=== PATIENT | male | born 1950 | race Two or more races ===

== ENCOUNTER 2017-06-30 14:05 | Inpatient (IN) | payer OTHER ==
[~2017-06-30] VITALS: Ht 149.9 cm; Wt 56.3 kg
[2017-06-30] MEDS ORDERED: ACET500C8 PO (14:35)
[2017-06-30] MEDS ORDERED: ASCO500C16 PO (14:35)
[2017-06-30] MEDS ORDERED: DOCU-141 PO (14:35)
[2017-06-30] MEDS ORDERED: ZINC220C8 PO (14:35)
[2017-06-30] MEDS ORDERED: FERR300L PO (14:35)
[2017-06-30] MEDS ORDERED: LATA2.5D2 EACHEYE (14:35)
[2017-06-30] MEDS ORDERED: PANT40TA2 PO (14:35)
[2017-06-30] MEDS ORDERED: SIMV20TA2 PO (14:35)
[2017-06-30] MEDS ORDERED: FURO-152 PO (14:35)
[2017-06-30] MEDS ORDERED: AMLO5TAB4 PO (14:35)
[2017-06-30] MEDS ORDERED: FLUT16SP2 NS (14:35)
[2017-06-30] MEDS ORDERED: FOLI0.8T2 PO (14:35)
[2017-06-30] MEDS ORDERED: GLIM2TAB2 PO (14:35)
[2017-06-30] MEDS ORDERED: ASPI-1101 PO (14:35)
[2017-06-30] MEDS ORDERED: LOSA50TA21 PO (14:35)
[2017-06-30] MEDS ORDERED: INSU300I SQ (14:35)
[2017-06-30] MEDS ORDERED: COLL30OI TOP (14:35)
[2017-06-30] MEDS ORDERED: DIVA250T6 PO (14:35)
[2017-06-30] MEDS ORDERED: IV NORMAL SALINE 1000 ML BAG IV ONE (15:15)
[2017-06-30 15:28] LABS: BASOPHILS # (AUTO) 0.1 K/uL (0.0-8.0); BASOPHILS % (AUTO) 0.6 % (0.0-2.0); EOSINOPHILS % (AUTO) 0.3 % (0.0-7.0); HEMATOCRIT 26.4 % (36.7-47.1); HEMOGLOBIN 8.7 g/dL (12.5-16.3); LYMPHOCYTES # (AUTO) 1.6 K/uL (20.0-40.0); LYMPHOCYTES % (AUTO) 8.9 % (20.5-51.5); MEAN CORPUSCULAR HEMOGLOBIN 29.8 uug (23.8-33.4); MEAN CORPUSCULAR HGB CONC 33 g/dL (32.5-36.3); MEAN CORPUSCULAR VOLUME 90.4 fL (73.0-96.2); MONOCYTES # (AUTO) 1.1 K/uL (2.0-10.0); MONOCYTES % (AUTO) 6.3 % (0.0-11.0); NEUTROPHILS # (AUTO) 15.2 K/uL (1.8-8.9); NEUTROPHILS % (AUTO) 83.9 % (38.5-71.5); PLATELET COUNT (AUTO) 566 K/uL (152-348); RED BLOOD CELL COUNT(AUTO) 2.92 MIL/uL (4.06-5.63); WHITE BLOOD COUNT (AUTO) 18.1 K/uL (3.6-10.2)
[2017-06-30 15:36] LABS: CREATININE 3.4 mg/dL (0.6-1.3)
[2017-06-30 15:41] LABS: BILIRUBIN,DIRECT 0.1 mg/dL (0.0-0.2); BILIRUBIN,TOTAL 0.3 mg/dL (0.2-1.0); TOTAL PROTEIN, SERUM 8.6 g/dL (6.4-8.2)
[2017-06-30] MEDS ORDERED: VANCOMYCIN IV 1,000 MG in IV DEXTROSE 5% 250 ML IV ONE (15:45)
[2017-06-30] MEDS ORDERED: PIPERACILLIN SODIUM/TAZOBACTAM 4.5 G in IV DEXTROSE 5% 50 ML IV SCH ×2 (15:45→16:06)
[2017-06-30] MEDS ORDERED: VANCOMYCIN IV 200 ML ONE (15:55)
[2017-06-30] MEDS ORDERED: PIPERACILLIN/TAZO 4.5 GM VIAL IV ONE (15:55)
[2017-06-30] MEDS ORDERED: PIPERACILLIN SODIUM/TAZOBACTAM 4.5 G in IV DEXTROSE 5% 50 ML IV ONE (16:07)
[2017-06-30 17:43] LABS: *CLARITY,URINE TURBID (CLEAR); *COLOR,URINE YELLOW (YELLOW)
[2017-06-30 17:44] LABS: *BILIRUBIN,URIN NEGATIVE (NEGATIVE); *BLOOD, URINE 2+ (NEGATIVE); *KETONES,URINE TRACE (NEGATIVE); *PROTEIN,URINE 3+ (NEGATIVE); *UROBILINOGEN,URINE 0.2 E.U./dl (NORMAL); LEUKOCYTE ESTERASE ,URINE 3+ (NEGATIVE); NITRITE, URINE NEGATIVE (NEGATIVE); UGLUCOSE TRACE (NEGATIVE)
[2017-06-30 17:46] LABS: BACTERIA,URINE MODERATE /HPF (NONE SEEN); MUCUS,URINE MANY /LPF (0-FEW); WBC,URINE TNTC /HPF (0-3)
[2017-06-30 17:48] VITALS: BP 131/46
[2017-06-30] MEDS ORDERED: DEXTROSE 50% 50 ML DISP.SYRIN IV PRN (19:30)
[2017-06-30] MEDS ORDERED: MORPHINE SULFATE 2 MG/1 ML DISP.SYRIN IV PRN (19:30)
[2017-06-30] MEDS ORDERED: ACETAMINOPHEN 650 MG SUPP.RECT RC PRN (19:30)
[2017-06-30] MEDS ORDERED: ONDANSETRON 4 MG/2 ML VIAL IV PRN (19:30)
[2017-06-30] MEDS: BLOOD SUGAR DIAGNOSTIC 1 EACH STRIP VI SCH (20:12)
[2017-06-30] MEDS: INSULIN REGULAR, HUMAN 300 UNIT/3 ML VIAL SQ PRN (20:15)
[2017-06-30] MEDS: FAMOTIDINE. 20 MG/2 ML VIAL IV SCH (20:16)
[2017-06-30] MEDS: IV D5 1/2 NS 1000 ML 1,000 ML IV PRN (20:18)
[2017-06-30] MEDS: LATANOPROST OPHT DROP 2.5 ML BOTTLE EACHEYE SCH (20:32)
[2017-06-30 21:10] VITALS: BP 123/54
[2017-07-01] MEDS: PIPERACILLIN/TAZOBACTAM/D5W 2.25 G in PREMIXED 1 EACH IV SCH ×4 (00:06→23:26)
[2017-07-01] MEDS: BLOOD SUGAR DIAGNOSTIC 1 EACH STRIP VI SCH ×6 (00:06→23:23)
[2017-07-01] MEDS: INSULIN REGULAR, HUMAN 300 UNIT/3 ML VIAL SQ PRN ×4 (00:08→23:26)
[2017-07-01 05:43] VITALS: BP 133/77
[2017-07-01 06:20] LABS: BASOPHILS # (AUTO) 0.1 K/uL (0.0-8.0); BASOPHILS % (AUTO) 0.5 % (0.0-2.0); EOSINOPHILS # (AUTO) 0.2 K/uL (0.0-0.7); EOSINOPHILS % (AUTO) 0.9 % (0.0-7.0); HEMATOCRIT 25.2 % (36.7-47.1); HEMOGLOBIN 8.2 g/dL (12.5-16.3); LYMPHOCYTES # (AUTO) 0.7 K/uL (20.0-40.0); LYMPHOCYTES % (AUTO) 3.8 % (20.5-51.5); MEAN CORPUSCULAR HEMOGLOBIN 29.6 uug (23.8-33.4); MEAN CORPUSCULAR HGB CONC 32 g/dL (32.5-36.3); MEAN CORPUSCULAR VOLUME 91.3 fL (73.0-96.2); MONOCYTES # (AUTO) 0.8 K/uL (2.0-10.0); MONOCYTES % (AUTO) 4.7 % (0.0-11.0); NEUTROPHILS # (AUTO) 15.7 K/uL (1.8-8.9); NEUTROPHILS % (AUTO) 90.1 % (38.5-71.5); PLATELET COUNT (AUTO) 531 K/uL (152-348); RED BLOOD CELL COUNT(AUTO) 2.75 MIL/uL (4.06-5.63); WHITE BLOOD COUNT (AUTO) 17.4 K/uL (3.6-10.2)
[2017-07-01 06:47] LABS: BILIRUBIN,TOTAL 0.5 mg/dL (0.2-1.0); CREATININE 3.4 mg/dL (0.6-1.3); MAGNESIUM 2.2 mg/dL (1.8-2.4); PHOSPHOROUS 3.8 mg/dL (2.5-4.9); POTASSIUM 4.6 mmol/L (3.5-5.1); TOTAL PROTEIN, SERUM 7.6 g/dL (6.4-8.2)
[2017-07-01 06:49] LABS: THYROID STIMULATING HORMONE 2.51 mIU/mL (0.358-3.740)
[2017-07-01] MEDS: FAMOTIDINE. 20 MG/2 ML VIAL IV SCH ×2 (08:19→20:15)
[2017-07-01 09:33] VITALS: BP 137/43
[2017-07-01] MEDS ORDERED: POLYMYXIN B SULFATE 500,000 UNITS, BACITRACIN 50,000 UNITS, NORMAL SALINE 20 ML MC ONE ×3 (09:45)
[2017-07-01] MEDS ORDERED: MORPHINE SULFATE 4 MG/1 ML DISP.SYRIN IV PRN (10:00)
[2017-07-01] MEDS ORDERED: MORPHINE SULFATE 2 MG/1 ML DISP.SYRIN IV PRN (10:00)
[2017-07-01] MEDS ORDERED: IV NORMAL SALINE 1000 ML BAG IV ONE (12:21)
[2017-07-01] MEDS ORDERED: LIDOCAINE HCL 1% 20 ML VIAL MC ONE (12:21)
[2017-07-01] MEDS ORDERED: SEVOFLURANE 250 ML BOTTLE IH ONE (12:21)
[2017-07-01] MEDS ORDERED: EPHEDRINE SULFATE 50 MG/ML AMPUL MC ONE (12:21)
[2017-07-01 12:30] VITALS: BP 105/43
[2017-07-01] MEDS: IV D5 1/2 NS 1000 ML 1,000 ML IV PRN (12:45)
[2017-07-01 14:47] VITALS: BP 106/47
[2017-07-01 15:31] VITALS: BP 125/40
[2017-07-01] MEDS ORDERED: VANCOMYCIN IV 1 G in PREMIXED 0 EACH IV ONE (16:30)
[2017-07-01 19:47] LABS: *BILIRUBIN,URIN NEGATIVE (NEGATIVE); *BLOOD, URINE 1+ (NEGATIVE); *CLARITY,URINE CLEAR (CLEAR); *COLOR,URINE YELLOW (YELLOW); *KETONES,URINE NEGATIVE (NEGATIVE); *PROTEIN,URINE 2+ (NEGATIVE); *UROBILINOGEN,URINE 0.2 E.U./dl (NORMAL); LEUKOCYTE ESTERASE ,URINE 1+ (NEGATIVE); NITRITE, URINE NEGATIVE (NEGATIVE); PH,URINE 5.5 (5.0-8.0); UGLUCOSE TRACE (NEGATIVE)
[2017-07-01 19:53] LABS: RBC,URINE 0-3 /HPF (0-3); WBC,URINE 80-100 /HPF (0-3)
[2017-07-01 19:54] LABS: BACTERIA,URINE NONE SEEN /HPF (NONE SEEN); SQUAMOUS EPITHELIAL CELL,UR FEW /HPF (NONE SEEN)
[2017-07-01] MEDS: LATANOPROST OPHT DROP 2.5 ML BOTTLE EACHEYE SCH (20:15)
[2017-07-01 20:17] LABS: *CREATININE,URINE 43.9 mg/dL (30-125); *URINE TOTAL PROTEIN RANDOM 113.9 mg/dL (<150/24HR)
[2017-07-01 20:53] VITALS: BP 125/62
[2017-07-01] MEDS ORDERED: INSULIN GLARGINE,HUM 300 UNITS/3 ML CARTRIDGE SQ SCH (23:15)
[2017-07-01] MEDS ORDERED: INSULIN GLARGINE,HUM 300 UNITS/3 ML CARTRIDGE SQ ONE (23:51)
[2017-07-02] VITALS (9 sets, daily range): BP systolic 117–151; BP diastolic 37–78
[2017-07-02] MEDS: BLOOD SUGAR DIAGNOSTIC 1 EACH STRIP VI SCH ×4 (05:30→20:24)
[2017-07-02] MEDS: INSULIN REGULAR, HUMAN 300 UNIT/3 ML VIAL SQ PRN ×3 (05:33→16:28)
[2017-07-02 07:00] LABS: BILIRUBIN,TOTAL 0.4 mg/dL (0.2-1.0); CREATININE 3.3 mg/dL (0.6-1.3); MAGNESIUM 2.1 mg/dL (1.8-2.4); PHOSPHOROUS 3.5 mg/dL (2.5-4.9); POTASSIUM 4.5 mmol/L (3.5-5.1); TOTAL PROTEIN, SERUM 7.5 g/dL (6.4-8.2)
[2017-07-02 07:08] LABS: BASOPHILS # (AUTO) 0.1 K/uL (0.0-8.0); BASOPHILS % (AUTO) 0.5 % (0.0-2.0); EOSINOPHILS # (AUTO) 0.7 K/uL (0.0-0.7); EOSINOPHILS % (AUTO) 4.7 % (0.0-7.0); HEMATOCRIT 22.7 % (36.7-47.1); HEMOGLOBIN 7.5 g/dL (12.5-16.3); LYMPHOCYTES # (AUTO) 0.9 K/uL (20.0-40.0); LYMPHOCYTES % (AUTO) 6.5 % (20.5-51.5); MEAN CORPUSCULAR HGB CONC 33 g/dL (32.5-36.3); MEAN CORPUSCULAR VOLUME 91.6 fL (73.0-96.2); MONOCYTES # (AUTO) 0.8 K/uL (2.0-10.0); MONOCYTES % (AUTO) 5.5 % (0.0-11.0); NEUTROPHILS # (AUTO) 11.7 K/uL (1.8-8.9); NEUTROPHILS % (AUTO) 82.8 % (38.5-71.5); PLATELET COUNT (AUTO) 509 K/uL (152-348); WHITE BLOOD COUNT (AUTO) 14.1 K/uL (3.6-10.2)
[2017-07-02 07:09] LABS: RED BLOOD CELL COUNT(AUTO) 2.48 MIL/uL (4.06-5.63)
[2017-07-02] MEDS: IV D5 1/2 NS 1000 ML 1,000 ML IV PRN (08:49)
[2017-07-02] MEDS: PIPERACILLIN/TAZOBACTAM/D5W 2.25 G in PREMIXED 1 EACH IV SCH ×2 (08:49→16:12)
[2017-07-02] MEDS ORDERED: EPOETIN ALFA 10,000 UNITS/ML VIAL SQ ONE (09:45)
[2017-07-02] MEDS ORDERED: FAMOTIDINE 20 MG TABLET PO SCH ×2 (10:00→10:31)
[2017-07-02] MEDS: FAMOTIDINE 20 MG TABLET PO SCH (11:33)
[2017-07-02] MEDS: LATANOPROST OPHT DROP 2.5 ML BOTTLE EACHEYE SCH (20:21)
[2017-07-02] MEDS ORDERED: INSULIN GLARGINE,HUM 300 UNITS/3 ML CARTRIDGE SQ SCH (21:00)
[2017-07-02] MEDS ORDERED: INSULIN REGULAR, HUMAN 300 UNIT/3 ML VIAL SQ SCH ×3 (21:15→21:45)
[2017-07-02] MEDS ORDERED: INSULIN REGULAR, HUMAN 300 UNITS/3 ML VIAL SQ PRN (21:45)
[2017-07-02] MEDS ORDERED: INSULIN REGULAR, HUMAN 300 UNIT/3 ML VIAL ONE (21:45)
[2017-07-03] VITALS (8 sets, daily range): BP systolic 140–183; BP diastolic 43–77
[2017-07-03] MEDS: PIPERACILLIN/TAZOBACTAM/D5W 2.25 G in PREMIXED 1 EACH IV SCH ×3 (01:06→16:26)
[2017-07-03 06:45] LABS: CREATININE 2.5 mg/dL (0.6-1.3); MAGNESIUM 2.1 mg/dL (1.8-2.4); PHOSPHOROUS 3.1 mg/dL (2.5-4.9); POTASSIUM 4.8 mmol/L (3.5-5.1)
[2017-07-03] MEDS ORDERED: INSULIN REGULAR, HUMAN 300 UNIT/3 ML VIAL SQ PRN (07:15)
[2017-07-03] MEDS ORDERED: DEXTROSE 50% 50 ML DISP.SYRIN IV PRN (07:15)
[2017-07-03] MEDS ORDERED: BLOOD SUGAR DIAGNOSTIC 1 EACH STRIP VI SCH ×2 (07:30→21:00)
[2017-07-03 07:43] LABS: BASOPHILS # (AUTO) 0.1 K/uL (0.0-8.0); BASOPHILS % (AUTO) 0.7 % (0.0-2.0); EOSINOPHILS # (AUTO) 0.9 K/uL (0.0-0.7); LYMPHOCYTES # (AUTO) 1.6 K/uL (20.0-40.0); LYMPHOCYTES % (AUTO) 11.9 % (20.5-51.5); MEAN CORPUSCULAR HEMOGLOBIN 30.2 uug (23.8-33.4); MEAN CORPUSCULAR HGB CONC 34 g/dL (32.5-36.3); MEAN CORPUSCULAR VOLUME 89.6 fL (73.0-96.2); MONOCYTES # (AUTO) 0.7 K/uL (2.0-10.0); MONOCYTES % (AUTO) 5.4 % (0.0-11.0); NEUTROPHILS # (AUTO) 9.9 K/uL (1.8-8.9); PLATELET COUNT (AUTO) 602 K/uL (152-348); RED BLOOD CELL COUNT(AUTO) 3.47 MIL/uL (4.06-5.63); WHITE BLOOD COUNT (AUTO) 13.2 K/uL (3.6-10.2)
[2017-07-03 07:47] LABS: HEMOGLOBIN 10.5 g/dL (12.5-16.3)
[2017-07-03 07:48] LABS: HEMATOCRIT 31.1 % (36.7-47.1)
[2017-07-03] MEDS: BLOOD SUGAR DIAGNOSTIC 1 EACH STRIP VI SCH ×5 (08:00→21:51)
[2017-07-03] MEDS: FAMOTIDINE 20 MG TABLET PO SCH (08:11)
[2017-07-03 09:52] LABS: *BILIRUBIN,URIN NEGATIVE (NEGATIVE); *BLOOD, URINE 1+ (NEGATIVE); *CLARITY,URINE CLEAR (CLEAR); *COLOR,URINE YELLOW (YELLOW); *KETONES,URINE NEGATIVE (NEGATIVE); *PROTEIN,URINE 2+ (NEGATIVE); *UROBILINOGEN,URINE 0.2 E.U./dl (NORMAL); LEUKOCYTE ESTERASE ,URINE 1+ (NEGATIVE); NITRITE, URINE NEGATIVE (NEGATIVE); UGLUCOSE NEGATIVE (NEGATIVE)
[2017-07-03 10:06] LABS: *CREATININE,URINE 22.7 mg/dL (30-125)
[2017-07-03 10:15] LABS: BACTERIA,URINE NONE SEEN /HPF (NONE SEEN)
[2017-07-03 10:16] LABS: SQUAMOUS EPITHELIAL CELL,UR FEW /HPF (NONE SEEN); WBC,URINE 20-50 /HPF (0-3); YEAST,URINE MODERATE /HPF (NONE SEEN)
[2017-07-03] MEDS ORDERED: METOPROLOL TARTRATE 25 MG TABLET PO SCH (12:15)
[2017-07-03] MEDS ORDERED: METOPROLOL TARTRATE 50 MG TABLET PO ONE (17:57)
[2017-07-03] MEDS: LACTOBACILLUS RHAMNOSUS GG 1 EACH CAPSULE PO SCH (20:13)
[2017-07-03] MEDS: LATANOPROST OPHT DROP 2.5 ML BOTTLE EACHEYE SCH (20:13)
[2017-07-03] MEDS: hydrALAZINE HCL 25 MG TABLET PO PRN (20:14)
[2017-07-03] MEDS: INSULIN GLARGINE,HUM 300 UNITS/3 ML CARTRIDGE SQ SCH (21:49)
[2017-07-03] MEDS: INSULIN REGULAR, HUMAN 300 UNITS/3 ML VIAL SQ PRN (21:50)
[2017-07-04] MEDS: PIPERACILLIN/TAZOBACTAM/D5W 2.25 G in PREMIXED 1 EACH IV SCH ×4 (00:20→23:14)
[2017-07-04 04:31] VITALS: BP 143/53
[2017-07-04 06:58] LABS: BASOPHILS # (AUTO) 0.1 K/uL (0.0-8.0); BASOPHILS % (AUTO) 0.9 % (0.0-2.0); EOSINOPHILS # (AUTO) 0.8 K/uL (0.0-0.7); EOSINOPHILS % (AUTO) 7.4 % (0.0-7.0); HEMATOCRIT 30.7 % (36.7-47.1); HEMOGLOBIN 10.3 g/dL (12.5-16.3); LYMPHOCYTES # (AUTO) 1.2 K/uL (20.0-40.0); LYMPHOCYTES % (AUTO) 11.5 % (20.5-51.5); MEAN CORPUSCULAR HEMOGLOBIN 29.8 uug (23.8-33.4); MEAN CORPUSCULAR HGB CONC 33 g/dL (32.5-36.3); MEAN CORPUSCULAR VOLUME 89.3 fL (73.0-96.2); MONOCYTES # (AUTO) 0.6 K/uL (2.0-10.0); MONOCYTES % (AUTO) 5.3 % (0.0-11.0); NEUTROPHILS # (AUTO) 7.9 K/uL (1.8-8.9); NEUTROPHILS % (AUTO) 74.9 % (38.5-71.5); PLATELET COUNT (AUTO) 629 K/uL (152-348); RED BLOOD CELL COUNT(AUTO) 3.44 MIL/uL (4.06-5.63); WHITE BLOOD COUNT (AUTO) 10.6 K/uL (3.6-10.2)
[2017-07-04 07:35] LABS: BILIRUBIN,TOTAL 0.3 mg/dL (0.2-1.0); CREATININE 2.4 mg/dL (0.6-1.3); MAGNESIUM 2.2 mg/dL (1.8-2.4); PHOSPHOROUS 3.2 mg/dL (2.5-4.9); POTASSIUM 4.8 mmol/L (3.5-5.1); VANCOMYCIN,RANDOM 15.7 ug/mL (18.0-26.0)
[2017-07-04] MEDS: BLOOD SUGAR DIAGNOSTIC 1 EACH STRIP VI SCH ×4 (07:49→20:38)
[2017-07-04] MEDS: LACTOBACILLUS RHAMNOSUS GG 1 EACH CAPSULE PO SCH ×2 (09:06→20:25)
[2017-07-04] MEDS: FAMOTIDINE 20 MG TABLET PO SCH (09:06)
[2017-07-04] MEDS: METOPROLOL TARTRATE 50 MG TABLET PO SCH ×2 (09:07→20:25)
[2017-07-04 09:10] VITALS: BP 144/51
[2017-07-04] MEDS ORDERED: VANCOMYCIN IV 1 G in PREMIXED 0 EACH IV ONE (10:00)
[2017-07-04 11:01] VITALS: BP 146/45
[2017-07-04] MEDS: PROTEIN SUPPLEMENT (PROSTAT) 30 ML LIQUID PO SCH (12:45)
[2017-07-04 14:19] LABS: A/G RATIO 0.4 (0.7-1.7); ALBUMIN 2.3 g/dL (2.9-4.4); ALPHA-1-GLOBULIN 0.4 g/dL (0.0-0.4); ALPHA-2-GLOBULIN 1.3 g/dL (0.4-1.0); GAMMA GLOBULIN 2.4 g/dL (0.4-1.8); GLOBULIN, TOTAL 5.2 g/dL (2.2-3.9); M-SPIKE Not Observed g/dL (Not Observed)
[2017-07-04 15:08] VITALS: BP 150/69
[2017-07-04] MEDS ORDERED: PROT30LI PO (16:39)
[2017-07-04] MEDS ORDERED: DEXT50DI8 IV (16:39)
[2017-07-04] MEDS ORDERED: Insulin Glargine,Hum SQ (16:39)
[2017-07-04] MEDS ORDERED: INSU100V28 SQ ×2 (16:39)
[2017-07-04] MEDS ORDERED: TRAM50TA2 PO (16:39)
[2017-07-04] MEDS ORDERED: METO50TA16 PO (16:39)
[2017-07-04] MEDS ORDERED: Blood Sugar Diagnostic VI (16:39)
[2017-07-04] MEDS ORDERED: LACT1CAP57 PO (16:39)
[2017-07-04] MEDS ORDERED: SULF1TAB48 PO (16:43)
[2017-07-04] MEDS: hydrALAZINE HCL 25 MG TABLET PO PRN (19:24)
[2017-07-04 19:36] VITALS: BP 164/60
[2017-07-04] MEDS: LATANOPROST OPHT DROP 2.5 ML BOTTLE EACHEYE SCH (20:38)
[2017-07-04] MEDS: INSULIN REGULAR, HUMAN 300 UNITS/3 ML VIAL SQ PRN (20:40)
[2017-07-04] MEDS: INSULIN GLARGINE,HUM 300 UNITS/3 ML CARTRIDGE SQ SCH (20:41)
[2017-07-05 04:00] VITALS: BP 147/52
[2017-07-05] MEDS: hydrALAZINE HCL 25 MG TABLET PO SCH ×2 (05:36→13:48)
[2017-07-05] MEDS: BLOOD SUGAR DIAGNOSTIC 1 EACH STRIP VI SCH ×2 (06:40→10:45)
[2017-07-05 07:39] LABS: BASOPHILS # (AUTO) 0.1 K/uL (0.0-8.0); BASOPHILS % (AUTO) 1.2 % (0.0-2.0); EOSINOPHILS # (AUTO) 0.7 K/uL (0.0-0.7); EOSINOPHILS % (AUTO) 7.2 % (0.0-7.0); HEMATOCRIT 29.9 % (36.7-47.1); LYMPHOCYTES # (AUTO) 1.4 K/uL (20.0-40.0); LYMPHOCYTES % (AUTO) 14.2 % (20.5-51.5); MEAN CORPUSCULAR HEMOGLOBIN 30.2 uug (23.8-33.4); MEAN CORPUSCULAR HGB CONC 33 g/dL (32.5-36.3); MEAN CORPUSCULAR VOLUME 90.8 fL (73.0-96.2); MONOCYTES # (AUTO) 0.7 K/uL (2.0-10.0); MONOCYTES % (AUTO) 7.1 % (0.0-11.0); NEUTROPHILS # (AUTO) 6.8 K/uL (1.8-8.9); NEUTROPHILS % (AUTO) 70.3 % (38.5-71.5); PLATELET COUNT (AUTO) 590 K/uL (152-348); WHITE BLOOD COUNT (AUTO) 9.6 K/uL (3.6-10.2)
[2017-07-05] MEDS: PROTEIN SUPPLEMENT (PROSTAT) 30 ML LIQUID PO SCH (07:41)
[2017-07-05] MEDS: PIPERACILLIN/TAZOBACTAM/D5W 2.25 G in PREMIXED 1 EACH IV SCH ×2 (07:41→15:37)
[2017-07-05 08:01] LABS: BILIRUBIN,TOTAL 0.3 mg/dL (0.2-1.0); CREATININE 2.3 mg/dL (0.6-1.3); MAGNESIUM 2.1 mg/dL (1.8-2.4); PHOSPHOROUS 3.9 mg/dL (2.5-4.9); POTASSIUM 4.6 mmol/L (3.5-5.1); TOTAL PROTEIN, SERUM 7.9 g/dL (6.4-8.2)
[2017-07-05] MEDS: LACTOBACILLUS RHAMNOSUS GG 1 EACH CAPSULE PO SCH (08:01)
[2017-07-05] MEDS: FAMOTIDINE 20 MG TABLET PO SCH (08:06)
[2017-07-05] MEDS: METOPROLOL TARTRATE 50 MG TABLET PO SCH (08:06)
[2017-07-05] MEDS ORDERED: GENTAMICIN SULFATE 0.1% OINT 15 GM TUBE TP SCH (09:00)
[2017-07-05 11:42] VITALS: BP 152/69
[2017-07-05] MEDS ORDERED: RXGEN IV (13:36)
[2017-07-05] MEDS ORDERED: HYDR-4077 PO (13:38)
[2017-07-05] MEDS ORDERED: METO25TA6 PO (13:38)
[2017-07-05] MEDS ORDERED: hydrALAZINE HCL 50 MG TABLET PO ONE (13:39)
[2017-07-05 15:20] VITALS: BP 158/38
[2017-07-05] MEDS ORDERED: MUPIROCIN 2% OINT 22 GM TUBE TP SCH (21:00)
== END 2017-07-05 16:15 | DRG 710 ==
LOC: ER 14:05 → TELE 17:10 → MED 07-03 10:30
PROVIDERS: ADMIT Internal Medicine; ATTEND Internal Medicine
PROC: 0Y6N0ZD Detachment at Left Foot, Partial 4th Ray, Open Approach (ICD-10-PCS; principal; 2017-07-01 10:16)
PROC: 0Y6N0ZF Detachment at Left Foot, Partial 5th Ray, Open Approach (ICD-10-PCS; principal; 2017-07-01 10:16)
PROC: 30233N1 Transfusion of Nonautologous Red Blood Cells into Peripheral Vein, Percutaneous Approach (ICD-10-PCS; 2017-07-02)
DX: A41.9 Sepsis, unspecified organism (principal); N17.0 Acute kidney failure with tubular necrosis; E43 Unspecified severe protein-calorie malnutrition; G93.40 Encephalopathy, unspecified; I96 Gangrene, not elsewhere classified; E11.52 Type 2 diabetes mellitus with diabetic peripheral angiopathy with gangrene; E11.22 Type 2 diabetes mellitus with diabetic chronic kidney disease; D68.59 Other primary thrombophilia; E11.621 Type 2 diabetes mellitus with foot ulcer; E11.65 Type 2 diabetes mellitus with hyperglycemia; L03.116 Cellulitis of left lower limb; M86.8X7 Other osteomyelitis, ankle and foot; Z66 Do not resuscitate; Z79.4 Long term (current) use of insulin; B96.4 Proteus (mirabilis) (morganii) as the cause of diseases classified elsewhere; B96.1 Klebsiella pneumoniae [K. pneumoniae] as the cause of diseases classified elsewhere; B96.20 Unspecified Escherichia coli [E. coli] as the cause of diseases classified elsewhere; Z16.12 Extended spectrum beta lactamase (ESBL) resistance; R32 Unspecified urinary incontinence; E11.69 Type 2 diabetes mellitus with other specified complication; L97.524 Non-pressure chronic ulcer of other part of left foot with necrosis of bone; I69.919 Unspecified symptoms and signs involving cognitive functions following unspecified cerebrovascular disease; F01.50 Vascular dementia, unspecified severity, without behavioral disturbance, psychotic disturbance, mood disturbance, and anxiety; I12.9 Hypertensive chronic kidney disease with stage 1 through stage 4 chronic kidney disease, or unspecified chronic kidney disease; N18.9 Chronic kidney disease, unspecified; Z74.09 Other reduced mobility; E78.5 Hyperlipidemia, unspecified; E87.5 Hyperkalemia; D63.8 Anemia in other chronic diseases classified elsewhere; K21.9 Gastro-esophageal reflux disease without esophagitis; J98.11 Atelectasis; I25.2 Old myocardial infarction; H54.7 Unspecified visual loss; Z79.899 Other long term (current) drug therapy; Z79.82 Long term (current) use of aspirin; J98.2 Interstitial emphysema; Z68.25 Body mass index [BMI] 25.0-25.9, adult; F99 Mental disorder, not otherwise specified; R74.0 Nonspecific elevation of levels of transaminase and lactic acid dehydrogenase [LDH]; N39.0 Urinary tract infection, site not specified
CPT/HCPCS: 36415; 70030-TC; 71045; 73630; 80164; 82306; 82652; 83550; 83605; 83690; 83735; 83970; 84100; 84155; 84156; 84165; 84300; 84443; 85025; 85730; 86850; 86900; 86901; 86920; 87040; 87070; 87075; 87077; 87086; 93005; A4649; A4663; J0885; J1815; J2270; J2543; J3370; J3490; J7030; J7040; P9016-BL; P9021

== ENCOUNTER 2018-02-27 13:16 | Inpatient (IN) | payer OTHER ==
[~2018-02-27] VITALS: Ht 162.6 cm; Wt 63.5 kg
[~2018-02-27 13:16] MED LIST: AMLO5TAB4 PO; ASCO500C16 PO; ASPI-1101 PO; Blood Sugar Diagnostic VI; DEXT50DI8 IV; DIVA-76 PO; DOCU-141 PO; FERR300L PO; FOLI0.8T2 PO; GLIM2TAB2 PO; HYDR-4077 PO; INSU100V28 SQ; Insulin Glargine,Hum SQ; LACT1CAP57 PO; LATA2.5D2 EACHEYE; METO25TA6 PO; PANT40TA2 PO; PROT30LI PO; RXGEN IV; TRAM50TA2 PO; ZINC220C8 PO
[2018-02-27 13:56] LABS: BASOPHILS # (AUTO) 0.1 K/uL (0.0-8.0); BASOPHILS % (AUTO) 1.3 % (0.0-2.0); EOSINOPHILS # (AUTO) 0.5 K/uL (0.0-0.7); EOSINOPHILS % (AUTO) 4.8 % (0.0-7.0); HEMATOCRIT 33.3 % (36.7-47.1); HEMOGLOBIN 11.2 g/dL (12.5-16.3); LYMPHOCYTES # (AUTO) 2.3 K/uL (20.0-40.0); LYMPHOCYTES % (AUTO) 24.1 % (20.5-51.5); MEAN CORPUSCULAR HEMOGLOBIN 30.3 uug (23.8-33.4); MEAN CORPUSCULAR HGB CONC 34 g/dL (32.5-36.3); MEAN CORPUSCULAR VOLUME 90.3 fL (73.0-96.2); MONOCYTES # (AUTO) 0.5 K/uL (2.0-10.0); MONOCYTES % (AUTO) 5.3 % (0.0-11.0); NEUTROPHILS % (AUTO) 64.5 % (38.5-71.5); PLATELET COUNT (AUTO) 330 K/uL (152-348); RED BLOOD CELL COUNT(AUTO) 3.69 MIL/uL (4.06-5.63); WHITE BLOOD COUNT (AUTO) 9.4 K/uL (3.6-10.2)
[2018-02-27 14:06] LABS: CREATININE 2.5 mg/dL (0.6-1.3); POTASSIUM 4.3 mmol/L (3.5-5.1)
[2018-02-27 14:12] LABS: BILIRUBIN,DIRECT 0.1 mg/dL (0.0-0.2); BILIRUBIN,TOTAL 0.2 mg/dL (0.2-1.0); TOTAL PROTEIN, SERUM 8.1 g/dL (6.4-8.2)
[2018-02-27] MEDS ORDERED: ISOS20TA8 PO (14:15)
[2018-02-27] MEDS ORDERED: SERT50TA PO (14:15)
[2018-02-27] MEDS ORDERED: COLL30OI TOP (14:15)
[2018-02-27] MEDS ORDERED: INSU100V7 SQ (14:15)
[2018-02-27] MEDS ORDERED: SILV50CR32 TP (14:15)
[2018-02-27] MEDS ORDERED: METO25TA6 PO (14:15)
[2018-02-27] MEDS ORDERED: ZINC220C8 PO (14:15)
[2018-02-27] MEDS ORDERED: HYDR-4077 PO (14:15)
[2018-02-27] MEDS ORDERED: PROT946L PO (14:15)
[2018-02-27] MEDS ORDERED: LATA2.5D2 EACHEYE (14:15)
[2018-02-27] MEDS ORDERED: FERR220S6 PO (14:15)
[2018-02-27] MEDS ORDERED: FOLI0.8T23 PO (14:15)
[2018-02-27] MEDS ORDERED: PANT40TA2 PO (14:15)
[2018-02-27] MEDS ORDERED: DEXT33GE7 PO (14:15)
[2018-02-27] MEDS ORDERED: TRAM50TA2 PO (14:15)
[2018-02-27] MEDS ORDERED: VANCOMYCIN IV 750 MG in IV DEXTROSE 5% 150 ML IV ONE (14:30)
[2018-02-27] MEDS ORDERED: VANCOMYCIN IV 200 ML ONE (14:32)
--- NOTE | 2018-02-27 15:10 | NUR ---
PATIENT HAS BEEN ADMITTED TO TELEMETRY AND WAS TRANSFERRED FROM ER. UPON ASSESSMENT, PATIENT STATED HE IS ONLY FAROESE SPEAKING. USED DATA MANAGEMENT MANAGER TO CONDUCT INTIAL ASSESSMENT AND PHYSICAL ASSESSMENT. USED Keniu TO ACCESS CAFE AIDE, DIRECTOR SKILLS #[id number]
[2018-02-27 15:36] VITALS: BP 189/80
--- NOTE | 2018-02-27 18:42 | NUR ---
patient admitted today from [facility] for left foot cellulitis. patient is resting in bed comfortably. patient is in stable condition and denies any pain or discomfort at this time. Orders for wound consult has been made for Left foot, left heel, right foot, and right heel. Elevated the foot and applied hydrogel with mepilex to effected areas. medical reconciliation has been done and Dr. Chatman has been notified. Various wound were noted, charted, and taken pictures of and placed in the chart. Patient denies any suicidal ideation and any family members who are living. patient has no elevated temperature. Patient is able to urinate in urinal, 100 cc was collected and appeared clear and yellow. Noted redness in left eye with appearance of goo. Will continue to monitor the patient closely.
[2018-02-27] MEDS ORDERED: TRAMADOL HCL 50 MG TABLET PO PRN (19:00)
[2018-02-27] MEDS ORDERED: ONDANSETRON 4 MG/2 ML VIAL IV PRN (19:00)
[2018-02-27] MEDS: METOPROLOL TARTRATE 25 MG TABLET PO SCH ×2 (19:00→21:27)
[2018-02-27] MEDS ORDERED: DEXTROSE PO PRN (19:00)
[2018-02-27] MEDS ORDERED: [UNRECOGNIZED DRUG - OTHER] PO PRN (19:00)
[2018-02-27] MEDS ORDERED: PIPERACILLIN/TAZOBACTAM/D5W 2.25 G in PREMIXED 1 EACH IV SCH (19:00)
[2018-02-27] MEDS ORDERED: MORPHINE SULFATE 2 MG/1 ML DISP.SYRIN IV PRN (19:00)
[2018-02-27] MEDS ORDERED: DEXTROSE 50% 50 ML DISP.SYRIN IV PRN (19:15)
--- NOTE | 2018-02-27 19:44 | NUR ---
LOPRESSOR po TO BE GIVEN AT 2100H
--- NOTE | 2018-02-27 19:49 | NUR ---
CLINICAL PHARMACY NOTE:VANCOMYCIN DOSING Request for vancomycin dosing on 68 y/o male 5'4" 140lbs for cellulitis Temp 98.1 BUN 38 Scr 2.5 WBC 9.4 also on Zosyn Received Vancomycin 750mg in ER Will dose by levels due to decrease renal function. Random vancomycin level ordered for tomorrow afternoon
[2018-02-27] MEDS ORDERED: MEROPENEM 500 MG in IV NORMAL SALINE 50 ML IV SCH (20:15)
[2018-02-27 20:40] VITALS: BP 187/63
[2018-02-27] MEDS: DIVALPROEX 250 MG TABLET.DR PO SCH (21:26)
[2018-02-27] MEDS: AMLODIPINE 5 MG TABLET PO SCH (21:27)
[2018-02-27] MEDS ORDERED: MEROPENEM 500 MG VIAL IV ONE (21:29)
[2018-02-27] MEDS: LATANOPROST OPHT DROP 2.5 ML BOTTLE EACHEYE SCH (21:31)
[2018-02-27] MEDS: BLOOD SUGAR DIAGNOSTIC 1 EACH STRIP VI SCH ×3 (21:42→22:18)
[2018-02-27] MEDS: IV 1/2NS 1000 ML 1,000 ML IV PRN (21:43)
--- NOTE | 2018-02-27 21:48 | NUR ---
Blood sugar at 21.24 was 61, accidentally pressed no action needed. BS rechecked and result was 57, OJ given and will recheck
[2018-02-27] MEDS: hydrALAZINE HCL 50 MG TABLET PO SCH (21:51)
[2018-02-27] MEDS ORDERED: PIPERACILLIN/TAZOBACTAM/D5W 3.375 G in PREMIXED 1 EACH IV SCH (22:00)
[2018-02-27] MEDS ORDERED: NITROGLYCERIN OINT 1 GM PACKET TP PRN (22:45)
[2018-02-28 00:47] VITALS: BP 125/59
[2018-02-28 04:00] VITALS: BP 122/56
[2018-02-28 06:13] LABS: BASOPHILS # (AUTO) 0.1 K/uL (0.0-8.0); BASOPHILS % (AUTO) 1.1 % (0.0-2.0); EOSINOPHILS # (AUTO) 0.5 K/uL (0.0-0.7); EOSINOPHILS % (AUTO) 5.9 % (0.0-7.0); HEMATOCRIT 28.3 % (36.7-47.1); HEMOGLOBIN 9.8 g/dL (12.5-16.3); LYMPHOCYTES # (AUTO) 2.1 K/uL (20.0-40.0); LYMPHOCYTES % (AUTO) 25.8 % (20.5-51.5); MEAN CORPUSCULAR HGB CONC 35 g/dL (32.5-36.3); MEAN CORPUSCULAR VOLUME 88.9 fL (73.0-96.2); MONOCYTES # (AUTO) 0.5 K/uL (2.0-10.0); MONOCYTES % (AUTO) 6.5 % (0.0-11.0); NEUTROPHILS % (AUTO) 60.7 % (38.5-71.5); PLATELET COUNT (AUTO) 279 K/uL (152-348); RED BLOOD CELL COUNT(AUTO) 3.18 MIL/uL (4.06-5.63); WHITE BLOOD COUNT (AUTO) 8.2 K/uL (3.6-10.2)
[2018-02-28] MEDS: hydrALAZINE HCL 50 MG TABLET PO SCH ×3 (06:20→22:26)
[2018-02-28] MEDS: BLOOD SUGAR DIAGNOSTIC 1 EACH STRIP VI SCH ×6 (06:32→21:09)
[2018-02-28 06:47] LABS: BILIRUBIN,TOTAL 0.3 mg/dL (0.2-1.0); CREATININE 2.5 mg/dL (0.6-1.3); MAGNESIUM 1.8 mg/dL (1.8-2.4); PHOSPHOROUS 4.4 mg/dL (2.5-4.9); POTASSIUM 4.3 mmol/L (3.5-5.1); TOTAL PROTEIN, SERUM 7.1 g/dL (6.4-8.2)
[2018-02-28 06:52] LABS: THYROID STIMULATING HORMONE 4.924 mIU/mL (0.358-3.740)
--- NOTE | 2018-02-28 07:21 | NUR ---
PATIENT RESTING IN COMFORTABLY IN BED AT THIS TIME. AWAKE. STABLE. RISK FOR HYPOGLYCEMIA, WILL MONITOR CLOSELY. BLIND IN BOTH EYES. ALERT/ORIENTED. WOUND/SKIN CARE WILL BE PROVIDED. BED REST. CALL LIGHT WITHIN REACH OF PATIENT. BED ALARM ON. SAFETY MEASURES IMPLEMENTED, WILL CONTINUE TO MONITOR THROUGHOUT SHIFT.
--- NOTE | 2018-02-28 07:31 | NUR ---
BS level this am was 51, protocol was initiated milk and crackers given. rechecked 57 OJ given, rechecked third time it was 112. no actions endorsed pnt is not in any distress
[2018-02-28] MEDS: FOLIC ACID/VITAMIN B COMP W-C TABLET PO SCH (08:09)
[2018-02-28] MEDS: DIVALPROEX 250 MG TABLET.DR PO SCH ×2 (08:09→21:05)
[2018-02-28] MEDS: SERTRALINE HCL 50 MG TABLET PO SCH (08:09)
[2018-02-28] MEDS: AMLODIPINE 5 MG TABLET PO SCH ×2 (08:09→21:04)
[2018-02-28] MEDS: PANTOPRAZOLE SODIUM 40 MG TABLET.DR PO SCH (08:09)
[2018-02-28] MEDS: ZINC SULFATE 220 MG CAPSULE PO SCH (08:09)
[2018-02-28] MEDS: ASPIRIN EC 81 MG TABLET.DR PO SCH (08:09)
[2018-02-28] MEDS: ISOSORBIDE DINITRATE 20 MG TABLET PO SCH ×3 (08:10→16:19)
[2018-02-28] MEDS: METOPROLOL TARTRATE 25 MG TABLET PO SCH ×2 (08:10→21:05)
[2018-02-28] MEDS: DOCUSATE SODIUM 100 MG CAPSULE PO SCH ×2 (08:10→16:19)
[2018-02-28] MEDS: FERROUS SULFATE 325 MG TABEC PO SCH (08:10)
[2018-02-28] MEDS: MEROPENEM 500 MG in IV NORMAL SALINE 50 ML IV SCH ×2 (08:11→20:52)
[2018-02-28] MEDS: PROTEIN SUPPLEMENT (PROSTAT) 30 ML LIQUID PO SCH (08:12)
[2018-02-28] MEDS: ASCORBIC ACID 500 MG TABLET PO SCH (08:12)
[2018-02-28 09:00] VITALS: BP 146/51
[2018-02-28] MEDS ORDERED: Medication Not On Formulary EA (Ferrous Sulfate 330 MG) PO SCH (09:00)
[2018-02-28] MEDS ORDERED: COLLAGENASE OINT 30 GM TUBE TOP SCH (09:00)
[2018-02-28] MEDS ORDERED: Medication Not On Formulary EA (Ascorbic Acid (Vitamin C CAPSULE) 500 MG) PO SCH (09:00)
[2018-02-28] MEDS ORDERED: Medication Not On Formulary EA (Protein Supplement (Promod) 30 ML) PO SCH (09:00)
[2018-02-28 11:27] VITALS: BP 154/61
--- NOTE | 2018-02-28 11:35 | NUR ---
blood sugar 148 before lunch time. will not cover with regular insulin due to risk of hypoglycemia.
--- NOTE | 2018-02-28 12:15 | NUR ---
CLINICAL PHARMACY NOTE:VANCOMYCIN DOSING Request for vancomycin dosing on 68 y/o male 5'4" 140lbs for cellulitis Temp 98.5 BUN 35 Scr 2.5 WBC 8.2 also on Zosyn Received Vancomycin 750mg in ER Will dose by levels due to decrease renal function. Next random ordered for today at 1300. will check when available and redose as needed. Will follow Addendum: 02/28/18 at 1441 by AB WILSON ADM RANDOM RESULTED 14, DOSED 1GM X 1 AT 1600. WILL CHECKSCR IN AM AND ORDER NEXT RANDOM. WILL FOLLOW
--- NOTE | 2018-02-28 12:48 | NUR ---
WOUND CARE CONSULT: PT PRESENTS WITH RT HEEL ULCER AND LEFT HEEL ESCHAR, PRESENT ON ADMISSION. RECOMMEND DPM CONSULT. RECOMMENDATIONS MADE FOR SKIN PROTECTION AND DISCUSSED WITH NURSING STAFF. HEELS FLOATED AND MEPILEX IN PLACE FOR PROTECTION. WILL SEE PRN. IN AGREEMENT WITH PLAN OF CARE.
[2018-02-28] MEDS ORDERED: Z GUARD REMEDY PASTE 57 GM TUBE TOP PRN (13:00)
[2018-02-28] MEDS: IV 1/2NS 1000 ML 1,000 ML IV PRN (15:11)
[2018-02-28 15:13] VITALS: BP 131/52
[2018-02-28] MEDS ORDERED: VANCOMYCIN IV 1 G in PREMIXED 0 EACH IV ONE (16:00)
[2018-02-28] MEDS: SILVER SULFADIAZINE 1% CREAM 50 GM TP SCH (16:19)
[2018-02-28 17:24] LABS: *BILIRUBIN,URIN NEGATIVE (NEGATIVE); *BLOOD, URINE Trace-lysed (NEGATIVE); *CLARITY,URINE SLIGHTLY CLOUDY (CLEAR); *COLOR,URINE YELLOW (YELLOW); *KETONES,URINE NEGATIVE (NEGATIVE); *PROTEIN,URINE 3+ (NEGATIVE); *UROBILINOGEN,URINE 0.2 E.U./dl (NORMAL); LEUKOCYTE ESTERASE ,URINE 1+ (NEGATIVE); NITRITE, URINE NEGATIVE (NEGATIVE); PH,URINE 6.5 (5.0-8.0); UGLUCOSE TRACE (NEGATIVE)
[2018-02-28 17:41] LABS: *CREATININE,URINE 50.4 mg/dL (30-125); *URINE TOTAL PROTEIN RANDOM 529.9 mg/dL (<150/24HR)
--- NOTE | 2018-02-28 18:28 | NUR ---
PATIENT RESTING COMFORTABLY IN BED AT THIS TIME. STABLE CONDITION. BLOOD SUGAR CLOSELY MONITORED. NO SIGNS OF HYPOGLYCEMIA AT THIS TIME. BED REST. WOUND CARE PROVIDED PER MD ORDERS. URINE SENT. STOOL STILL NEEDED. BED IN LOCKED/LOW POSITION, SIDE RAILS UP X2, CALL LIGHT WITHIN REACH. PATIENT IS BLIND IN BOTH EYES BUT ABLE TO COMMUNICATE AND FOLLOW COMMANDS. IVF RUNNING. ABX ADMINISTERED. WILL CONTINUE TO MONITOR UNTIL END OF SHIFT.
--- NOTE | 2018-02-28 19:10 | NUR ---
RECEIVED PATIENT AWAKE ON BED, AAOX4, [place] SPEAKING AND BLIND IN BOTH EYES BUT ABLE TO COMMUNICATE NEEDS. NO SIGNS OF DISCOMFORT NOTED AT THIS TIME. IV SITE ON R HAND, PATENT AND INTACT. ON TELE SINUS RHYTHM WITH HR OF 65. SAFETY MEASURES INITIATED, PLACED BED ON LOW AND LOCKED POSITION WITH TWO SIDE RAILS UP. BED ALARM ON. BOTH HEELS OFFLOADED. PATIENT BELONGINGS AND CALL SOSA WITHIN REACH.
[2018-02-28 19:37] LABS: SQUAMOUS EPITHELIAL CELL,UR FEW /HPF (NONE SEEN); WBC,URINE 80-100 /HPF (0-3)
[2018-02-28 19:47] LABS: BACTERIA,URINE MODERATE /HPF (NONE SEEN)
[2018-02-28 20:00] VITALS: BP 164/43
[2018-02-28] MEDS: LATANOPROST OPHT DROP 2.5 ML BOTTLE EACHEYE SCH (21:04)
[2018-03-01] VITALS: BP 137/38
[2018-03-01 04:00] VITALS: BP 151/54
[2018-03-01] MEDS: MEROPENEM 500 MG in IV NORMAL SALINE 50 ML IV SCH ×2 (06:20→20:46)
[2018-03-01] MEDS: hydrALAZINE HCL 50 MG TABLET PO SCH ×3 (06:20→21:43)
[2018-03-01 06:32] LABS: BASOPHILS # (AUTO) 0.1 K/uL (0.0-8.0); BASOPHILS % (AUTO) 1.3 % (0.0-2.0); EOSINOPHILS # (AUTO) 0.5 K/uL (0.0-0.7); EOSINOPHILS % (AUTO) 6.5 % (0.0-7.0); HEMATOCRIT 28.2 % (36.7-47.1); HEMOGLOBIN 9.5 g/dL (12.5-16.3); LYMPHOCYTES # (AUTO) 1.4 K/uL (20.0-40.0); LYMPHOCYTES % (AUTO) 19.3 % (20.5-51.5); MEAN CORPUSCULAR HEMOGLOBIN 30.6 uug (23.8-33.4); MEAN CORPUSCULAR HGB CONC 34 g/dL (32.5-36.3); MEAN CORPUSCULAR VOLUME 90.7 fL (73.0-96.2); MONOCYTES # (AUTO) 0.6 K/uL (2.0-10.0); MONOCYTES % (AUTO) 7.9 % (0.0-11.0); NEUTROPHILS # (AUTO) 4.7 K/uL (1.8-8.9); PLATELET COUNT (AUTO) 283 K/uL (152-348); RED BLOOD CELL COUNT(AUTO) 3.11 MIL/uL (4.06-5.63); WHITE BLOOD COUNT (AUTO) 7.3 K/uL (3.6-10.2)
[2018-03-01] MEDS: BLOOD SUGAR DIAGNOSTIC 1 EACH STRIP VI SCH ×4 (06:39→20:43)
--- NOTE | 2018-03-01 06:53 | NUR ---
PATIENT SLEPT THROUGHOUT THE SHIFT, NO SIGNS OF ACUTE DISTRESS NOTED AT THIS TIME. PATIENT BEEN COMPLIANT WITH CARE. IV SITE ON R HAND, PATENT AND INTACT. SKIN CARE AND MARY CARE PROVIDED. KEPT PATIENT SAFE AND COMFORTABLE AT ALL TIMES. PLACED CALL SOSA WITHIN REACH.
--- NOTE | 2018-03-01 07:25 | NUR ---
patient resting comfortably in bed. no signs of distress. no insulin-coverage needed per sliding scale. bed alarm on, call light within reach of patient. stable at this time. ivf running. will continue to monitor throughout shift.
[2018-03-01 07:27] LABS: BILIRUBIN,TOTAL 0.3 mg/dL (0.2-1.0); CREATININE 2.8 mg/dL (0.6-1.3); MAGNESIUM 1.8 mg/dL (1.8-2.4); PHOSPHOROUS 4.8 mg/dL (2.5-4.9); POTASSIUM 4.1 mmol/L (3.5-5.1); TOTAL PROTEIN, SERUM 6.9 g/dL (6.4-8.2)
[2018-03-01] MEDS: METOPROLOL TARTRATE 25 MG TABLET PO SCH ×2 (08:10→20:33)
[2018-03-01] MEDS: PANTOPRAZOLE SODIUM 40 MG TABLET.DR PO SCH (08:10)
[2018-03-01] MEDS: FOLIC ACID/VITAMIN B COMP W-C TABLET PO SCH (08:10)
[2018-03-01] MEDS: DOCUSATE SODIUM 100 MG CAPSULE PO SCH ×2 (08:10→17:18)
[2018-03-01] MEDS: AMLODIPINE 5 MG TABLET PO SCH ×2 (08:10→20:33)
[2018-03-01] MEDS: FERROUS SULFATE 325 MG TABEC PO SCH (08:10)
[2018-03-01] MEDS: ZINC SULFATE 220 MG CAPSULE PO SCH (08:11)
[2018-03-01] MEDS: ISOSORBIDE DINITRATE 20 MG TABLET PO SCH ×3 (08:11→17:18)
[2018-03-01] MEDS: DIVALPROEX 250 MG TABLET.DR PO SCH ×2 (08:11→20:31)
[2018-03-01] MEDS: PROTEIN SUPPLEMENT (PROSTAT) 30 ML LIQUID PO SCH (08:11)
[2018-03-01] MEDS: SERTRALINE HCL 50 MG TABLET PO SCH (08:11)
[2018-03-01] MEDS: ASCORBIC ACID 500 MG TABLET PO SCH (08:11)
[2018-03-01] MEDS: ASPIRIN EC 81 MG TABLET.DR PO SCH (08:11)
[2018-03-01] MEDS: SILVER SULFADIAZINE 1% CREAM 50 GM TP SCH (08:12)
[2018-03-01] MEDS: SODIUM HYPOCHLORITE 0.125% 473 ML BOTTLE TP SCH (08:12)
[2018-03-01 11:00] VITALS: BP 127/49
--- NOTE | 2018-03-01 11:17 | NUR ---
CLINICAL PHARMACY NOTE:VANCOMYCIN DOSING S: To continue vancomycin dosing on 68 y/o male for cellulitis O: Temp 97.9 BUN 36 Scr 2.8 WBC 7.3 also on Zosyn Vanco random level: pending (ordered for today at 1800) ht 16605 cm wt 63.5 kg Plan Will continue to dose by levels due to decrease renal function. Last dose given on 02/28 at 1600. Next random ordered for today at 1800. will check when available and re-dose as needed. Will follow Addendum: 03/01/18 at 1856 by SHELDON GARCIA ADM vancomycin level 21 will hold dose for now and order levels tomorrow.
[2018-03-01] MEDS: THERAHONEY GEL 1.5 OZ TUBE TOP SCH ×2 (11:40→12:00)
[2018-03-01] MEDS: IV 1/2NS 1000 ML 1,000 ML IV PRN (12:14)
--- NOTE | 2018-03-01 15:00 | NUR ---
PATIENT HAD DEBRIDEMENT SUCCESSFULLY DONE BY DR. BOURGEOIS OF BILATERAL LOWER EXTREMITIES. CONSENT WAS SIGNED. PATIENT VERBALIZED CONSENTED TO PROCEDURE, WITNESSED AND SIGNED BY ADDITIONAL RN ALONG WITH MYSELF.
[2018-03-01 15:28] VITALS: BP 140/56
--- NOTE | 2018-03-01 18:02 | NUR ---
PATIENT IN STABLE CONDITION, NO SIGNS OF DISTRESS. ON KCL MATTRESS. IVF RUNNING. BILATERAL LOWER EXTREMITIES WRAPPED BY MD. PATIENT A/OX3. BED ALARM ON, CALL LIGHT WITHIN REACH. SAFETY MEASURES IMPLEMENTED. WILL CONTINUE TO MONITOR UNTIL END OF SHIFT.
[2018-03-01 20:00] VITALS: BP 174/46
[2018-03-01] MEDS: LATANOPROST OPHT DROP 2.5 ML BOTTLE EACHEYE SCH (20:30)
[2018-03-01] MEDS: INSULIN REGULAR, HUMAN 300 UNIT/3 ML VIAL SQ PRN (20:51)
[2018-03-01 22:41] VITALS: BP 169/44
[2018-03-02] MEDS: IV 1/2NS 1000 ML 1,000 ML IV PRN ×2 (02:56→20:56)
[2018-03-02] MEDS: hydrALAZINE HCL 50 MG TABLET PO SCH ×3 (05:34→22:50)
[2018-03-02] MEDS: BLOOD SUGAR DIAGNOSTIC 1 EACH STRIP VI SCH ×4 (06:00→21:00)
[2018-03-02 06:17] VITALS: BP 168/54
[2018-03-02] MEDS: CLONIDINE HCL 0.1 MG TABLET PO PRN (06:54)
[2018-03-02] MEDS: MEROPENEM 500 MG in IV NORMAL SALINE 50 ML IV SCH ×2 (07:53→20:51)
[2018-03-02 08:00] VITALS: BP 161/40
[2018-03-02] MEDS: INSULIN REGULAR, HUMAN 300 UNIT/3 ML VIAL SQ PRN ×4 (08:43→21:04)
[2018-03-02] MEDS: ASPIRIN EC 81 MG TABLET.DR PO SCH (08:44)
[2018-03-02] MEDS: METOPROLOL TARTRATE 25 MG TABLET PO SCH ×2 (08:44→20:52)
[2018-03-02] MEDS: FOLIC ACID/VITAMIN B COMP W-C TABLET PO SCH (08:44)
[2018-03-02] MEDS: FERROUS SULFATE 325 MG TABEC PO SCH (08:44)
[2018-03-02] MEDS: ISOSORBIDE DINITRATE 20 MG TABLET PO SCH ×3 (08:45→17:14)
[2018-03-02] MEDS: PROTEIN SUPPLEMENT (PROSTAT) 30 ML LIQUID PO SCH (08:45)
[2018-03-02] MEDS: SERTRALINE HCL 50 MG TABLET PO SCH (08:45)
[2018-03-02] MEDS: DIVALPROEX 250 MG TABLET.DR PO SCH ×2 (08:45→20:51)
[2018-03-02] MEDS: ASCORBIC ACID 500 MG TABLET PO SCH (08:45)
[2018-03-02] MEDS: DOCUSATE SODIUM 100 MG CAPSULE PO SCH ×2 (08:45→17:00)
[2018-03-02] MEDS: AMLODIPINE 5 MG TABLET PO SCH ×2 (08:45→20:52)
[2018-03-02 08:47] LABS: BASOPHILS # (AUTO) 0.1 K/uL (0.0-8.0); EOSINOPHILS # (AUTO) 0.4 K/uL (0.0-0.7); EOSINOPHILS % (AUTO) 3.8 % (0.0-7.0); HEMATOCRIT 28.8 % (36.7-47.1); HEMOGLOBIN 9.9 g/dL (12.5-16.3); LYMPHOCYTES # (AUTO) 1.5 K/uL (20.0-40.0); LYMPHOCYTES % (AUTO) 15.8 % (20.5-51.5); MEAN CORPUSCULAR HEMOGLOBIN 31.2 uug (23.8-33.4); MEAN CORPUSCULAR HGB CONC 35 g/dL (32.5-36.3); MEAN CORPUSCULAR VOLUME 90.4 fL (73.0-96.2); MONOCYTES # (AUTO) 0.5 K/uL (2.0-10.0); NEUTROPHILS # (AUTO) 7.1 K/uL (1.8-8.9); NEUTROPHILS % (AUTO) 74.4 % (38.5-71.5); PLATELET COUNT (AUTO) 309 K/uL (152-348); RED BLOOD CELL COUNT(AUTO) 3.19 MIL/uL (4.06-5.63); WHITE BLOOD COUNT (AUTO) 9.5 K/uL (3.6-10.2)
[2018-03-02] MEDS: ZINC SULFATE 220 MG CAPSULE PO SCH (08:47)
[2018-03-02 08:58] LABS: BILIRUBIN,TOTAL 0.3 mg/dL (0.2-1.0); CREATININE 2.8 mg/dL (0.6-1.3); MAGNESIUM 1.8 mg/dL (1.8-2.4); PHOSPHOROUS 4.8 mg/dL (2.5-4.9); POTASSIUM 4.3 mmol/L (3.5-5.1); TOTAL PROTEIN, SERUM 7.2 g/dL (6.4-8.2)
[2018-03-02] MEDS: THERAHONEY GEL 1.5 OZ TUBE TOP SCH (09:00)
--- NOTE | 2018-03-02 09:11 | NUR ---
CLINICAL PHARMACY NOTE:VANCOMYCIN DOSING S: To continue vancomycin dosing on 68 y/o male for cellulitis O: Temp 98.2 BUN 41 Scr 2.8 WBC 9.5 also on Zosyn Vanco random level: 20.7 (with am labs) ht [address] cm wt 63.5 kg Plan Will continue to dose by levels due to decrease renal function. Last dose given on 02/28 at 1600. No dose shall be due today since vanco random level with am labs is above 20 mcg/ml. Next random ordered for tomorrow at 0600. will check when available and re-dose as needed. Will follow
[2018-03-02] MEDS: SILVER SULFADIAZINE 1% CREAM 50 GM TP SCH (09:59)
[2018-03-02] MEDS: PANTOPRAZOLE SODIUM 40 MG TABLET.DR PO SCH (09:59)
[2018-03-02] MEDS: SODIUM HYPOCHLORITE 0.125% 473 ML BOTTLE TP SCH (10:00)
[2018-03-02 11:01] VITALS: BP 102/37
--- NOTE | 2018-03-02 11:16 | NUR ---
Wound care to patricio feet done as ordered. Pt tolerated procedure well. Left heel wound s/p debridement yesterday. Soiled dressing to left heel and left toe noted with moderate amount of light red blood. Left heel wound bed pink and moist, no foul odor noted. No s/s of infection noted. Right heel wound dressing removed no blood noted. Treatment done as ordered with dakins and betadine solution. Bilateral pedal and popliteal pulses not palpable as before. Denied pain during tx. Patricio heel protectors in place and elevated with pillow for offloading as tolerated. Merrem IV infused and tolerated well. No s/s of adverse side effects noted. All needs met at this time. All safety precautions in place. Call light within reach. Will continue to monitor.
[2018-03-02 12:07] LABS: A/G RATIO 0.6 (0.7-1.7); ALBUMIN 2.3 g/dL (2.9-4.4); ALPHA-1-GLOBULIN 0.3 g/dL (0.0-0.4); ALPHA-2-GLOBULIN 0.9 g/dL (0.4-1.0); BETA GLOBULIN 0.9 g/dL (0.7-1.3); GAMMA GLOBULIN 1.8 g/dL (0.4-1.8); GLOBULIN, TOTAL 3.8 g/dL (2.2-3.9); M-SPIKE Not Observed g/dL (Not Observed)
[2018-03-02 15:01] VITALS: BP 135/37
--- NOTE | 2018-03-02 15:17 | NUR ---
Clarified with Dr. Machuca if another consent is needed for the "staged debridement of the lower extremities"? MD disagreed. Per MD, only the original consent. No new orders at this time.
--- NOTE | 2018-03-02 18:22 | NUR ---
Pt in bed resting comfortably. No s/s of acute distress noted. Patricio feet offloaded with pillows. Patricio heel protectors in place. Dressings in place. No s/s of hypo/hyperglycemia noted. Afebrile. 1/2 NS at 70ml/hr infusing to R hand 20 g IV acces with no s/s of complications noted to site. All safety precautions in place. Call light within reach. Denies pain. Will continue to monitor for change.
[2018-03-02 19:13] VITALS: BP 152/38
[2018-03-02] MEDS: LACTOBACILLUS RHAMNOSUS GG 1 EACH CAPSULE PO SCH (20:51)
[2018-03-02] MEDS: LATANOPROST OPHT DROP 2.5 ML BOTTLE EACHEYE SCH (20:52)
--- NOTE | 2018-03-02 21:45 | NUR ---
NSG: RECEIVED PATIENT RESTING COMFORTABLY IN BED AT THIS TIME. AWAKE. STABLE. RISK FOR HYPOGLYCEMIA, HS SNACK GIVEN. WILL MONITOR CLOSELY. PATIENT IS BLIND IN BOTH EYES. ALERT/ORIENTED. ELEVATED BOTH LOWER EXTS ON PILLOW FOR WOUND/SKIN SAFETY. PATIENT IS ON BED REST. CALL LIGHT WITHIN REACH. BED ALARM ON. SAFETY MEASURES IMPLEMENTED, WILL CONTINUE TO MONITOR FOR SAFETY.
[2018-03-03 03:11] VITALS: BP 131/43
--- NOTE | 2018-03-03 05:43 | NUR ---
GPS: PATIENT SLEPT WELL THROUGH THE NIGHT, NO SIGNS OF ACUTE DISTRESS NOTED AT THIS TIME. NO C/O PAIN OR DISCOMFORT. COMPLIANT WITH CARE AND MEDICATIONS. IVF RUNNING WELL. IV SITE ON R HAND PATENT AND INTACT. GOOD MARY CARE PROVIDED. KEPT PATIENT CLEAN AND DRY AND COMFORTABLE . CALL SOSA WITHIN REACH. CONTINUE PLAN OF CARE.
[2018-03-03 06:21] LABS: BASOPHILS # (AUTO) 0.1 K/uL (0.0-8.0); BASOPHILS % (AUTO) 1.2 % (0.0-2.0); EOSINOPHILS # (AUTO) 0.5 K/uL (0.0-0.7); EOSINOPHILS % (AUTO) 5.5 % (0.0-7.0); HEMOGLOBIN 9.3 g/dL (12.5-16.3); LYMPHOCYTES # (AUTO) 1.2 K/uL (20.0-40.0); LYMPHOCYTES % (AUTO) 14.3 % (20.5-51.5); MEAN CORPUSCULAR HEMOGLOBIN 30.7 uug (23.8-33.4); MEAN CORPUSCULAR HGB CONC 34 g/dL (32.5-36.3); MEAN CORPUSCULAR VOLUME 89.3 fL (73.0-96.2); MONOCYTES # (AUTO) 0.6 K/uL (2.0-10.0); MONOCYTES % (AUTO) 6.7 % (0.0-11.0); NEUTROPHILS % (AUTO) 72.3 % (38.5-71.5); PLATELET COUNT (AUTO) 266 K/uL (152-348); RED BLOOD CELL COUNT(AUTO) 3.02 MIL/uL (4.06-5.63); WHITE BLOOD COUNT (AUTO) 8.3 K/uL (3.6-10.2)
[2018-03-03] MEDS: hydrALAZINE HCL 50 MG TABLET PO SCH ×3 (06:24→23:12)
[2018-03-03] MEDS: BLOOD SUGAR DIAGNOSTIC 1 EACH STRIP VI SCH ×4 (06:29→21:38)
[2018-03-03] MEDS: MEROPENEM 500 MG in IV NORMAL SALINE 50 ML IV SCH ×2 (06:33→21:24)
[2018-03-03 06:49] LABS: CREATININE 2.7 mg/dL (0.6-1.3); MAGNESIUM 1.8 mg/dL (1.8-2.4); POTASSIUM 4.3 mmol/L (3.5-5.1); VANCOMYCIN,RANDOM 17.1 ug/mL (18.0-26.0)
[2018-03-03] MEDS: PROTEIN SUPPLEMENT (PROSTAT) 30 ML LIQUID PO SCH (08:00)
[2018-03-03] MEDS: DOCUSATE SODIUM 100 MG CAPSULE PO SCH ×2 (09:00→16:54)
[2018-03-03] MEDS: SODIUM HYPOCHLORITE 0.125% 473 ML BOTTLE TP SCH (09:00)
--- NOTE | 2018-03-03 09:23 | NUR ---
CLINICAL PHARMACY NOTE:VANCOMYCIN DOSING S: To continue vancomycin dosing on 68 y/o male for cellulitis O: Temp 97.6 BUN 43 Scr 2.7 WBC 8.3 also on Zosyn Vanco random level: 17.1 (with am labs) ht [address]84 cm wt 63.5 kg Plan Will continue to dose by levels due to decrease renal function. Vancomycin 1 gram x1 will be due today at 1000 since vanco random level with am labs is under 20 mcg/ml. Next random ordered for tomorrow at 0600. will check when available and re-dose as needed. Will follow
[2018-03-03] MEDS: LACTOBACILLUS RHAMNOSUS GG 1 EACH CAPSULE PO SCH ×2 (09:40→21:24)
[2018-03-03] MEDS: DIVALPROEX 250 MG TABLET.DR PO SCH ×2 (09:40→21:24)
[2018-03-03] MEDS: FERROUS SULFATE 325 MG TABEC PO SCH (09:41)
[2018-03-03] MEDS: ASPIRIN EC 81 MG TABLET.DR PO SCH (09:41)
[2018-03-03] MEDS: ISOSORBIDE DINITRATE 20 MG TABLET PO SCH ×3 (09:41→17:02)
[2018-03-03] MEDS: AMLODIPINE 5 MG TABLET PO SCH ×2 (09:42→21:32)
[2018-03-03] MEDS: METOPROLOL TARTRATE 25 MG TABLET PO SCH ×2 (09:42→21:32)
[2018-03-03] MEDS: FOLIC ACID/VITAMIN B COMP W-C TABLET PO SCH (09:42)
[2018-03-03] MEDS: ASCORBIC ACID 500 MG TABLET PO SCH (09:42)
[2018-03-03] MEDS: ZINC SULFATE 220 MG CAPSULE PO SCH (09:42)
[2018-03-03] MEDS: PANTOPRAZOLE SODIUM 40 MG TABLET.DR PO SCH (09:42)
[2018-03-03] MEDS: SILVER SULFADIAZINE 1% CREAM 50 GM TP SCH (09:43)
[2018-03-03] MEDS: THERAHONEY GEL 1.5 OZ TUBE TOP SCH (09:43)
[2018-03-03] MEDS: SERTRALINE HCL 50 MG TABLET PO SCH (09:49)
[2018-03-03] MEDS ORDERED: VANCOMYCIN IV 1 G in PREMIXED 0 EACH IV ONE (10:00)
[2018-03-03] MEDS: INSULIN REGULAR, HUMAN 300 UNIT/3 ML VIAL SQ PRN (10:09)
[2018-03-03 11:32] VITALS: BP 159/46
[2018-03-03] MEDS: GLIMEPIRIDE 2 MG TABLET PO SCH (12:36)
[2018-03-03 15:04] VITALS: BP 127/45
--- NOTE | 2018-03-03 20:00 | NUR ---
Received patient laying in bed. In no acute distress noted. A/O x 1-2, Cuban speaking but able to make needs known. Patient states that he tired "cansado". Patient is blind on bilateral eyes. IVF infusing on the right hand, patent and intact. Patient is on an air mattress. Denies pain or SOB. Room air. Patient has multiple wounds on the lower extremities and is covered with kirlex. I plan to change his dressings 1 time in my shift. According to report, he is no toes on bilateral foot. He has a wound on the right heal and a healed wound on the felt heal. He has a wound that is tunneling on the left foot. I will make further comments when I complete the wound dressing. Safety initiated. Call light within reach. Bed alarm on. Will closely monitor.
[2018-03-03 20:56] VITALS: BP 149/43
[2018-03-03] MEDS: LATANOPROST OPHT DROP 2.5 ML BOTTLE EACHEYE SCH (21:24)
[2018-03-04] MEDS: hydrALAZINE HCL 50 MG TABLET PO SCH ×3 (05:04→21:37)
--- NOTE | 2018-03-04 05:36 | NUR ---
No changes t/o shift. Patient slept intermittently t/o shift. No acute distress. IVF infusing on the right FA. Wound dressing change done. Tolerated it well. Good urine output. Turned and repositioned Q2H. On low air mattress. Vital signs stable. Safety and comfort measures maintained t/o shift. All meds given as ordered. All needs met.
[2018-03-04 05:39] VITALS: BP 159/43
[2018-03-04] MEDS: MEROPENEM 500 MG in IV NORMAL SALINE 50 ML IV SCH ×2 (06:50→20:15)
[2018-03-04] MEDS: BLOOD SUGAR DIAGNOSTIC 1 EACH STRIP VI SCH ×4 (06:54→20:11)
[2018-03-04 07:54] LABS: BASOPHILS # (AUTO) 0.1 K/uL (0.0-8.0); BASOPHILS % (AUTO) 0.9 % (0.0-2.0); EOSINOPHILS # (AUTO) 0.4 K/uL (0.0-0.7); HEMATOCRIT 28.2 % (36.7-47.1); HEMOGLOBIN 9.7 g/dL (12.5-16.3); LYMPHOCYTES # (AUTO) 1.5 K/uL (20.0-40.0); LYMPHOCYTES % (AUTO) 16.1 % (20.5-51.5); MEAN CORPUSCULAR HEMOGLOBIN 31.1 uug (23.8-33.4); MEAN CORPUSCULAR HGB CONC 34 g/dL (32.5-36.3); MEAN CORPUSCULAR VOLUME 90.4 fL (73.0-96.2); MONOCYTES # (AUTO) 0.6 K/uL (2.0-10.0); NEUTROPHILS # (AUTO) 6.6 K/uL (1.8-8.9); PLATELET COUNT (AUTO) 302 K/uL (152-348); RED BLOOD CELL COUNT(AUTO) 3.12 MIL/uL (4.06-5.63); WHITE BLOOD COUNT (AUTO) 9.1 K/uL (3.6-10.2)
[2018-03-04] MEDS: PROTEIN SUPPLEMENT (PROSTAT) 30 ML LIQUID PO SCH (08:00)
[2018-03-04 08:09] LABS: CREATININE 2.4 mg/dL (0.6-1.3); MAGNESIUM 1.9 mg/dL (1.8-2.4); PHOSPHOROUS 4.6 mg/dL (2.5-4.9); VANCOMYCIN,RANDOM 28.4 ug/mL (18.0-26.0)
[2018-03-04] MEDS: GLIMEPIRIDE 2 MG TABLET PO SCH (08:59)
[2018-03-04] MEDS: SILVER SULFADIAZINE 1% CREAM 50 GM TP SCH (09:00)
[2018-03-04] MEDS: SODIUM HYPOCHLORITE 0.125% 473 ML BOTTLE TP SCH (09:00)
[2018-03-04] MEDS: THERAHONEY GEL 1.5 OZ TUBE TOP SCH (09:00)
[2018-03-04] MEDS: DOCUSATE SODIUM 100 MG CAPSULE PO SCH ×2 (09:15→17:12)
[2018-03-04] MEDS: LACTOBACILLUS RHAMNOSUS GG 1 EACH CAPSULE PO SCH ×2 (09:15→20:13)
[2018-03-04] MEDS: ASPIRIN EC 81 MG TABLET.DR PO SCH (09:16)
[2018-03-04] MEDS: DIVALPROEX 250 MG TABLET.DR PO SCH ×2 (09:16→20:13)
[2018-03-04] MEDS: FERROUS SULFATE 325 MG TABEC PO SCH (09:16)
[2018-03-04] MEDS: ISOSORBIDE DINITRATE 20 MG TABLET PO SCH ×3 (09:16→17:13)
[2018-03-04] MEDS: PANTOPRAZOLE SODIUM 40 MG TABLET.DR PO SCH (09:17)
[2018-03-04] MEDS: FOLIC ACID/VITAMIN B COMP W-C TABLET PO SCH (09:17)
[2018-03-04] MEDS: ASCORBIC ACID 500 MG TABLET PO SCH (09:17)
[2018-03-04] MEDS: AMLODIPINE 5 MG TABLET PO SCH ×2 (09:17→20:13)
[2018-03-04] MEDS: METOPROLOL TARTRATE 25 MG TABLET PO SCH ×2 (09:17→20:13)
[2018-03-04] MEDS: ZINC SULFATE 220 MG CAPSULE PO SCH (09:17)
[2018-03-04] MEDS: SERTRALINE HCL 50 MG TABLET PO SCH (09:18)
--- NOTE | 2018-03-04 09:43 | NUR ---
CLINICAL PHARMACY NOTE:VANCOMYCIN DOSING S: To continue vancomycin dosing on 68 y/o male for cellulitis O: Temp 98 BUN 41 Scr 2.4 WBC 9.1 also on Zosyn Vanco random level: 28.4 ([place] labs) ht [address] cm wt 63.5 kg Plan Will continue to dose by levels due to decrease renal function. Since vanco random level on am labs is over 20 mcg/ml,no dose will be given today. Next random ordered for tomorrow at 0600. will check when available and re-dose as needed. Will follow.
[2018-03-04 11:00] VITALS: BP 156/52
[2018-03-04] MEDS: INSULIN REGULAR, HUMAN 300 UNIT/3 ML VIAL SQ PRN ×3 (14:16→20:20)
[2018-03-04 15:00] VITALS: BP 160/50
[2018-03-04 19:21] LABS: *CREATININE,URINE 55.2 mg/dL (30-125); *URINE TOTAL PROTEIN RANDOM 384.4 mg/dL (<150/24HR)
[2018-03-04 20:00] VITALS: BP 143/53
[2018-03-04] MEDS: LATANOPROST OPHT DROP 2.5 ML BOTTLE EACHEYE SCH (20:11)
[2018-03-05 05:00] VITALS: BP 162/42
[2018-03-05] MEDS: hydrALAZINE HCL 50 MG TABLET PO SCH (05:20)
[2018-03-05] MEDS: MEROPENEM 500 MG in IV NORMAL SALINE 50 ML IV SCH (06:19)
[2018-03-05] MEDS: BLOOD SUGAR DIAGNOSTIC 1 EACH STRIP VI SCH ×3 (06:47→17:02)
--- NOTE | 2018-03-05 08:00 | NUR ---
PATIENT IS ALERT COOPERATIVE BUT BLIND ABLE TO RELAY SIMPLE NEEDS BUT IS TOTALLY DEPENDENT ON NURSES FOR ALL ADL TURNED AND REPOSITIONED Q2H HEELS ARE FLOATED SPOON FED MEALS NO S/S OF HYPO/HYPERGLYCEMIC REACTIONS AT THIS TIME MADE COMFORTABLE.
[2018-03-05 08:01] LABS: BASOPHILS # (AUTO) 0.1 K/uL (0.0-8.0); BASOPHILS % (AUTO) 1.2 % (0.0-2.0); EOSINOPHILS # (AUTO) 0.3 K/uL (0.0-0.7); EOSINOPHILS % (AUTO) 3.4 % (0.0-7.0); LYMPHOCYTES # (AUTO) 1.8 K/uL (20.0-40.0); MEAN CORPUSCULAR HEMOGLOBIN 31.3 uug (23.8-33.4); MEAN CORPUSCULAR HGB CONC 33 g/dL (32.5-36.3); MEAN CORPUSCULAR VOLUME 94.1 fL (73.0-96.2); MONOCYTES # (AUTO) 0.7 K/uL (2.0-10.0); MONOCYTES % (AUTO) 7.5 % (0.0-11.0); NEUTROPHILS # (AUTO) 5.8 K/uL (1.8-8.9); NEUTROPHILS % (AUTO) 66.9 % (38.5-71.5); PLATELET COUNT (AUTO) 251 K/uL (152-348); RED BLOOD CELL COUNT(AUTO) 3.31 MIL/uL (4.06-5.63); WHITE BLOOD COUNT (AUTO) 8.7 K/uL (3.6-10.2)
[2018-03-05] MEDS: PROTEIN SUPPLEMENT (PROSTAT) 30 ML LIQUID PO SCH (08:09)
[2018-03-05] MEDS: GLIMEPIRIDE 2 MG TABLET PO SCH (08:09)
[2018-03-05 08:19] LABS: CREATININE 2.4 mg/dL (0.6-1.3); MAGNESIUM 2.1 mg/dL (1.8-2.4); PHOSPHOROUS 4.6 mg/dL (2.5-4.9); POTASSIUM 3.9 mmol/L (3.5-5.1)
[2018-03-05] MEDS ORDERED: hydrALAZINE HCL 25 MG TABLET PO ONE (08:28)
[2018-03-05 08:31] LABS: HEMATOCRIT 31.1 % (36.7-47.1); HEMOGLOBIN 10.4 g/dL (12.5-16.3)
[2018-03-05] MEDS: FERROUS SULFATE 325 MG TABEC PO SCH (08:45)
[2018-03-05] MEDS: LACTOBACILLUS RHAMNOSUS GG 1 EACH CAPSULE PO SCH (08:45)
[2018-03-05] MEDS: ZINC SULFATE 220 MG CAPSULE PO SCH (08:45)
[2018-03-05] MEDS: PANTOPRAZOLE SODIUM 40 MG TABLET.DR PO SCH (08:45)
[2018-03-05] MEDS: ASCORBIC ACID 500 MG TABLET PO SCH (08:45)
[2018-03-05] MEDS: DOCUSATE SODIUM 100 MG CAPSULE PO SCH ×2 (08:45→16:57)
[2018-03-05] MEDS: SERTRALINE HCL 50 MG TABLET PO SCH (08:45)
[2018-03-05] MEDS: FOLIC ACID/VITAMIN B COMP W-C TABLET PO SCH (08:45)
[2018-03-05] MEDS: ASPIRIN EC 81 MG TABLET.DR PO SCH (08:45)
[2018-03-05] MEDS: DIVALPROEX 250 MG TABLET.DR PO SCH (08:45)
[2018-03-05] MEDS: AMLODIPINE 5 MG TABLET PO SCH (08:47)
[2018-03-05] MEDS: METOPROLOL TARTRATE 25 MG TABLET PO SCH (08:47)
[2018-03-05] MEDS: ISOSORBIDE DINITRATE 20 MG TABLET PO SCH ×3 (08:48→16:57)
[2018-03-05] MEDS: THERAHONEY GEL 1.5 OZ TUBE TOP SCH (08:54)
[2018-03-05] MEDS: SODIUM HYPOCHLORITE 0.125% 473 ML BOTTLE TP SCH (08:55)
[2018-03-05] MEDS: SILVER SULFADIAZINE 1% CREAM 50 GM TP SCH (08:56)
--- NOTE | 2018-03-05 11:00 | NUR ---
NEW ORDER NOTED TO DISCHARGE PATIENT TO [facility] TODAY AWAITING FOR DR COELHO TO COMPLETE THE DISCHARGE PROTOCOL.
[2018-03-05 11:44] VITALS: BP 168/54
[2018-03-05] MEDS: CLONIDINE HCL 0.1 MG TABLET PO PRN (11:47)
[2018-03-05] MEDS: INSULIN REGULAR, HUMAN 300 UNIT/3 ML VIAL SQ PRN (12:09)
--- NOTE | 2018-03-05 12:27 | NUR ---
CLINICAL PHARMACY NOTE:VANCOMYCIN DOSING S: To continue vancomycin dosing on 68 y/o male for cellulitis O: Temp 97.5 BUN 42 Scr 2.4 WBC 8.7 also on Zosyn Vanco random level: 24 (with am labs) ht [address]10 cm wt 63.5 kg Plan Will continue to dose by levels due to decrease renal function. Since vanco random level on am labs is over 20 mcg/ml,no dose will be given today. Next random ordered for tomorrow at 0600. will check when available and re-dose as needed. Will follow.
[2018-03-05] MEDS ORDERED: MERO500V IV (13:29)
[2018-03-05] MEDS ORDERED: SODI473S8 TP (13:29)
[2018-03-05] MEDS ORDERED: LACT1CAP57 PO (13:29)
[2018-03-05] MEDS ORDERED: HYDR50TA68 PO (13:29)
[2018-03-05] MEDS ORDERED: hydrALAZINE HCL 50 MG TABLET PO SCH (14:00)
--- NOTE | 2018-03-05 14:51 | NUR ---
DISCHARGE COMPLETED BY DR COELHO NOTED THAT PATIENT WILL CONTINUE ON IV ANTIBIOTICS FOR ALMOST A MONTH SO I ASKED HIM IF PATIENT SHOULD HAVE PICC LINE OR MID LINE STATED [place] EITHER OR SO THE INTAKE WORKER WAS NOTIFIED BY THE [facility] STATED WILL CALL THE MID LINE NURSE TO PLACE A MID LINE BEFORE DISCHARGE TODAY.
[2018-03-05 15:52] VITALS: BP 146/47
--- NOTE | 2018-03-05 16:40 | NUR ---
MID LINE INSERTED TO HIS RIGHT UPPER ARM PREPPING PATIENT FOR DISCHARGE PER THE AUTOMOTIVE QUALITY ENGINEER THE AMBULANCE HAS ISSUES WITH PATIENTS INSURANCE SO THE MASS SPECTROSCOPIST IS AWARE AND CALLING TO ARRANGE.
--- NOTE | 2018-03-05 16:43 | NUR ---
BLOOD SUGAR AT THIS TIME IS 49 RECHECKED AND ITS 50 ORANGE JUICE GIVEN PATIENT IS ALERT AND ORIENTED AND TOLERATED THE JUICE WELL.
--- NOTE | 2018-03-05 16:50 | NUR ---
CALLED THE [facility] AT [facility] TO GIVE REPORT CALLED 3 TIMES BUT NO ONE PICKED UP THE CALL DR COELHO NOTIFIED AND HE TEXTED THE FACILITY AND ALSO THE DON BUT NO RETURN CALL NOTED.
[2018-03-05 16:57] VITALS: BP 143/50
--- NOTE | 2018-03-05 17:00 | NUR ---
BLOOD SUGAR RECHECKED AGAIN AND ITS 58 DR COELHO NOTIFIED STATED TO NOT DO THE STAT LABS PER PROTOCOL STATED THAT SINCE PATIENT IS ALERT AND ORIENTED WITH NO S/S OF HYPOGLYCEMIC REACTIONS JUST GIVE HIM HIS DINNER.
--- NOTE | 2018-03-05 18:17 | NUR ---
BLOOD SUGAR RECHECKED AND ITS 69 PATIENT CONTINUES TO BE STABLE WITH NO DISTRESS AT THIS TIME.
--- NOTE | 2018-03-05 18:32 | NUR ---
NORBERTO MARKET GARDENER HERE TO SEE PATIENT AND CHANGED THE ORDER FOR HIS IV ANTIBIOTICS COPY MADE AND PLACED IN THE PATIENTS FOLDER FOR DISCHARGE.
--- NOTE | 2018-03-05 19:05 | NUR ---
PATIENT DISCHARGED [facility] CONDITION PATIENT HAS ONLY HIS DENTURES AND HE IS WEARING THEM. NO DISTRESS AT THIS TIME
[2018-03-05] MEDS ORDERED: CEFEPIME HCL 1 G in IV DEXTROSE 5% 50 ML IV SCH (20:00)
== END 2018-03-05 19:00 | DRG 740 ==
LOC: ER 13:16 → TELE 14:48 → MED 02-28 23:28
PROVIDERS: ADMIT Internal Medicine; ATTEND Internal Medicine
PROC: 0QBM0ZZ Excision of Left Tarsal, Open Approach (ICD-10-PCS; 2018-03-01)
PROC: 05HY33Z Insertion of Infusion Device into Upper Vein, Percutaneous Approach (ICD-10-PCS; principal; 2018-03-05)
DX: F01.50 Vascular dementia, unspecified severity, without behavioral disturbance, psychotic disturbance, mood disturbance, and anxiety (principal); N17.0 Acute kidney failure with tubular necrosis; E43 Unspecified severe protein-calorie malnutrition; J90 Pleural effusion, not elsewhere classified; E11.22 Type 2 diabetes mellitus with diabetic chronic kidney disease; E11.42 Type 2 diabetes mellitus with diabetic polyneuropathy; D68.59 Other primary thrombophilia; L89.613 Pressure ulcer of right heel, stage 3; L03.115 Cellulitis of right lower limb; E83.9 Disorder of mineral metabolism, unspecified; E87.1 Hypo-osmolality and hyponatremia; I69.359 Hemiplegia and hemiparesis following cerebral infarction affecting unspecified side; E11.52 Type 2 diabetes mellitus with diabetic peripheral angiopathy with gangrene; B96.4 Proteus (mirabilis) (morganii) as the cause of diseases classified elsewhere; L03.116 Cellulitis of left lower limb; B95.61 Methicillin susceptible Staphylococcus aureus infection as the cause of diseases classified elsewhere; Z16.11 Resistance to penicillins; Z16.19 Resistance to other specified beta lactam antibiotics; Z16.29 Resistance to other single specified antibiotic; Z89.411 Acquired absence of right great toe; L89.620 Pressure ulcer of left heel, unstageable; T87.89 Other complications of amputation stump; Z68.24 Body mass index [BMI] 24.0-24.9, adult; E78.5 Hyperlipidemia, unspecified; I12.9 Hypertensive chronic kidney disease with stage 1 through stage 4 chronic kidney disease, or unspecified chronic kidney disease; N18.9 Chronic kidney disease, unspecified; Z79.4 Long term (current) use of insulin; D63.8 Anemia in other chronic diseases classified elsewhere; I77.1 Stricture of artery; M81.0 Age-related osteoporosis without current pathological fracture; M86.9 Osteomyelitis, unspecified; E11.69 Type 2 diabetes mellitus with other specified complication; H54.8 Legal blindness, as defined in USA; H40.9 Unspecified glaucoma; K21.9 Gastro-esophageal reflux disease without esophagitis; N39.0 Urinary tract infection, site not specified; Z66 Do not resuscitate
CPT/HCPCS: 36415; 70030-TC; 71045; 73630; 76770; 83550; 83605; 83735; 83970; 84100; 84155; 84156; 84165; 84300; 84443; 85025; 85730; 87040; 87070; 87077; 93005; A4217; A4663; G0378; J0692; J1815; J2185; J2543; J3370; J3490; J7030; J7060